=== PATIENT | female | born 1980 | race Caucasian/White ===

== ENCOUNTER 2016-09-12 20:28 | Emergency (ER) | payer OTHER ==
[~2016-09-12] VITALS: Ht 167.6 cm; Wt 98.4 kg
[~2016-09-12 20:28] MED LIST: DENIES
[2016-09-12 20:40] VITALS: Ht 167.6 cm; Wt 98.4 kg
[2016-09-12] MEDS ORDERED: IBUP-1542 PO (21:02)
[2016-09-12] MEDS ORDERED: HYDR-3011 PO (21:02)
[2016-09-12] MEDS ORDERED: SULF1TAB31 PO (21:02)
[2016-09-12] MEDS ORDERED: dm meds (21:15)
--- NOTE | 2016-09-12 21:17 | ERD ---
ER Documentation Chief Complaint Date/Time DATE: 09/12/16 TIME: 21:15 Chief Complaint bed bug bites HPI 35-year-old female presents to emergency department for complaints of multiple insect bites, bedbugs by, had an infestation where she lives, patient has been itching on affected areas, noted some areas to be painful and swollen, throbbing pain, 6/10 scale, is worse upon touching the area. Patient denies any fever or chills. Patient has history of diabetes. Patient did not take any medications to help with symptoms. Patient's family members are here with the same problem. ROS All systems reviewed and are negative except as per history of present illness. Medications Home Meds Active Scripts Ibuprofen* (Motrin*) 600 Mg Tab, 600 MG PO Q6H Y for PAIN AND OR ELEVATED TEMP, #30 TAB Prov:EMILIANA TRIVEDI NP 09/12/16 Hydroxyzine Hcl* (Hydroxyzine Hcl*) 25 Mg Tablet, 25 MG PO Q8H Y for ITCHING, # 30 TAB Prov:EMILIANA TRIVEDI NP 09/12/16 Sulfamethoxazole/Trimethoprim* (Bactrim Ds* Tablet) 1 Each Tablet, 1 TAB PO BID for 10 Days, #20 TAB Prov:EMILIANA TRIVEDI NP 09/12/16 Reported Medications [dm meds] Unknown Strength No Conflict Check 09/12/16 [Denies] No Conflict Check 08/23/09 Allergies Allergies: Coded Allergies: Penicillins (Verified Allergy, Intermediate, RASH, 08/23/09) PMhx/Soc History of Surgery: Yes (TUBAL LIGATION 01/15/09; CSECTION X 3) Anesthesia Reaction: No Hx Neurological Disorder: No Hx Respiratory Disorders: No Hx Cardiac Disorders: No Hx Psychiatric Problems: No Hx Miscellaneous Medical Probl: Yes (diabetes) Hx Alcohol Use: No Hx Substance Use: No Hx Tobacco Use: No FmHx Family History: No coronary disease, No diabetes, No other Physical Exam Vitals Vital Signs Date Time Temp Pulse Resp B/P Pulse Ox O2 Delivery O2 Flow Rate FiO2 09/12/16 20:40 98.4 96 20 123/79 98 Physical Exam GENERAL: The patient is well developed and appropriate for usual state of health, in no apparent distress. CHEST: Clear to auscultation bilaterally. There are no rales, wheezes or rhonchi. HEART: Regular rate and rhythm. No murmurs, clicks, rubs or gallops. No S3 or S4. ABDOMEN: Soft, nontender and nondistended. Good bowel sounds. No rebound or guarding. No gross peritonitis. No gross organomegaly or masses. No Carpio sign or McBurney point tenderness. BACK: No midline or flank tenderness. EXTREMITIES: Equal pulses bilaterally. There is no peripheral clubbing, cyanosis or edema. No focal swelling or erythema. Full range of motion. Grossly neurovascularly intact. NEURO: Alert and oriented. Cranial nerves 2-12 intact. Motor strength in all 4 extremities with 5/5 strength. Sensation grossly intact. Normal speech and gait. SKIN: Maculopapular rash noted all over the body, some rashes in the upper extremities to be erythematous and indurated with mild tenderness on palpation, no fluctuance noted. There is no apparent ecchymosis or petechia. The skin is warm and dry. HEMATOLOGIC AND LYMPHATIC: There is no evidence of excessive bruising or lymphedema. No gross cervical, axillary, or inguinal lymphadenopathy. Procedures/MDM Medical decision making: Patient symptoms are likely consistent with infected insect bites. No symptoms of any abscess at this time. No symptoms of any cellulitis at this time. No symptoms of any coagulopathies at this time. Patient was given for Bactrim, hydroxyzine, is advised to avoid scratching the area, ibuprofen was given for pain. Patient was advised to follow with primary care doctor in 2 days for reevaluation of symptoms. Patient is advised to return to emergency department for any worsening symptoms Departure Diagnosis: Primary Impression: Infected insect bites of multiple sites Condition: Stable Patient Instructions: Insect Sting/Bite, Infected, Bedbug Bites EMILIANA TRIVEDI NP Sep 12, 2016 21:17
== END 2016-09-12 21:04 | disposition home or self-care (01) ==
LOC: E/R 20:28
DX: S60.561A Insect bite (nonvenomous) of right hand, initial encounter (principal); S60.562A Insect bite (nonvenomous) of left hand, initial encounter; E11.9 Type 2 diabetes mellitus without complications; W57.XXXA Bitten or stung by nonvenomous insect and other nonvenomous arthropods, initial encounter; Y92.9 Unspecified place or not applicable
CPT/HCPCS: 99284

== ENCOUNTER 2016-11-04 10:22 | Emergency (ER) | payer OTHER ==
[~2016-11-04] VITALS: Ht 165.1 cm; Wt 92.0 kg
[~2016-11-04 10:22] MED LIST changes: +HYDR-3011 PO; +IBUP-1542 PO; +SULF1TAB31 PO; +dm meds
[2016-11-04 10:28] VITALS: Ht 165.1 cm; Wt 92.0 kg
[2016-11-04] MEDS ORDERED: BEN25 PO (10:53)
[2016-11-04] MEDS ORDERED: HC30CR25 TOP (10:54)
--- NOTE | 2016-11-04 11:27 | ERD ---
ER Documentation Chief Complaint Date/Time DATE: 11/04/16 TIME: 11:25 Chief Complaint Per Mother she has bug bite HPI This is a 36-year-old female presents to the ER with multiple bug bites all over her body. Patient presents to the ER with all of her children They all have bedbug bites and bedbugs are found in their apartment. Patient has not had any fevers or chills. She is asymptomatic otherwise. ROS All systems reviewed and are negative except as per history of present illness. Medications Home Meds Active Scripts Hydrocortisone* Topical (Hydrocortisone* Topical) 2.5%-28.3 Gm Cream..g., 1 APPLIC TOP BID, #1 TUB Prov:ELENOKEMARNEISHA C 11/04/16 Hydrocortisone* Topical (Hydrocortisone* Topical) 2.5%-28.3 Gm Cream..g., 1 APPLIC TOP BID, #1 TUB Prov:NEISHA JOHANSEN 11/04/16 Diphenhydramine Hcl* (Benadryl*) 25 Mg Cap, 25 MG PO Q6, #30 CAP Prov:NEISHA JOHANSEN 11/04/16 Ibuprofen* (Motrin*) 600 Mg Tab, 600 MG PO Q6H Y for PAIN AND OR ELEVATED TEMP, #30 TAB Prov:EMILIANA TRIVEDI NP 09/12/16 Hydroxyzine Hcl* (Hydroxyzine Hcl*) 25 Mg Tablet, 25 MG PO Q8H Y for ITCHING, # 30 TAB Prov:EMILIANA TRIVEDI NP 09/12/16 Sulfamethoxazole/Trimethoprim* (Bactrim Ds* Tablet) 1 Each Tablet, 1 TAB PO BID for 10 Days, #20 TAB Prov:EMILIANA TRIVEDI NP 09/12/16 Reported Medications [dm meds] Unknown Strength No Conflict Check 09/12/16 [Denies] No Conflict Check 08/23/09 Allergies Allergies: Coded Allergies: Penicillins (Verified Allergy, Intermediate, RASH, 11/04/16) PMhx/Soc Medical and Surgical Hx: Unable to obtain History of Surgery: Yes (TUBAL LIGATION 01/15/09; CSECTION X 3) Anesthesia Reaction: No Hx Neurological Disorder: No Hx Respiratory Disorders: No Hx Cardiac Disorders: No Hx Psychiatric Problems: No Hx Miscellaneous Medical Probl: Yes (diabetes) Hx Alcohol Use: No Hx Substance Use: No Hx Tobacco Use: No Smoking Status: Never smoker Physical Exam Vitals Vital Signs Date Time Temp Pulse Resp B/P Pulse Ox O2 Delivery O2 Flow Rate FiO2 11/04/16 10:28 98.0 82 20 113/67 98 Physical Exam GENERAL: The patient is well developed and appropriate for usual state of health , in no apparent distress. HEENT: Atraumatic. No facial swelling, lip swelling, tongue swelling, eye swelling. CHEST: Clear to auscultation bilaterally. There are no rales, wheezes or rhonchi. HEART: Regular rate and rhythm. No murmurs, clicks, rubs or gallops. NEURO: Alert and oriented. SKIN: bug Bites in linear fashion.. Procedures/MDM Differential Diagnosis: dermatitis, allergic urticaria, viral exanthem, insect bite, fungal infection ,viral exanthem, hand foot mouth disease, , impetigo, cellulitis, abscess, marshall jazmyn syndrome, meningocemia, necrotizing fasciitis. This is a 36-year-old female presents to the ER with multiple bug bites all over his body. At this time there is no evidence of infection or allergic reaction. She will be sent home with Benadryl and hydrocortisone. Patient needs to follow-up with his primary care doctor within 1-2 days or return to ER sooner if symptoms worsen. My medical decision making shared with the mother she understands and agrees with plan. Departure Diagnosis: Primary Impression: Bug bite Condition: Stable Patient Instructions: Bedbug Bites Additional Instructions: Call your primary care doctor TOMORROW for an appointment during the next 1-2 days.See the doctor sooner or return here if your condition worsens before your appointment time. NEISHA JOHANSEN Nov 04, 2016 11:26
== END 2016-11-04 11:11 | disposition home or self-care (01) ==
LOC: FTE 10:22
DX: S40.861A Insect bite (nonvenomous) of right upper arm, initial encounter (principal); E11.9 Type 2 diabetes mellitus without complications; W57.XXXA Bitten or stung by nonvenomous insect and other nonvenomous arthropods, initial encounter; Y92.9 Unspecified place or not applicable
CPT/HCPCS: 99283

== ENCOUNTER 2018-08-21 12:46 | Emergency (ER) | payer OTHER ==
[~2018-08-21] VITALS: Wt 112.0 kg
[~2018-08-21 12:46] MED LIST changes: +BEN25 PO; +HC30CR25 TOP; -HYDR-3011 PO; +HYDR-843 PO
--- NOTE | 2018-08-21 14:24 | ERD ---
ER Documentation Chief Complaint Chief Complaint LEFT GROIN ABCESS, X 2 WEEKS HPI 37-year-old female, with history of diabetes, presents to the emergency department, referred by her primary doctor, for evaluation of a painful lump on the left groin area; according to the referral papers, the patient has received already 2 courses of antibiotics with cephalexin without improvement of the symptoms. The patient reports subjective fever and general malaise. The pain is throbbing, constant, 7/10. Also the patient had an attempted I&D done at another facility without evidence of pus collection. ROS All systems reviewed and are negative except as per history of present illness. Medications Home Meds Active Scripts Hydrocodone/Acetaminophen ([place] 5-325 Tablet) 1 Each Tablet, 1 TAB PO TID PRN for PAIN, #10 TAB Prov:JUANITA MARINELLI MD 08/21/18 Doxycycline Hyclate* (Doxycycline Hyclate*) 100 Mg Tablet.dr, 100 MG PO BID for 7 Days, TAB Prov:JUANITA MARINELLI MD 08/21/18 Hydrocortisone* Topical (Hydrocortisone* Topical) 2.5%-28.3 Gm Cream..g., 1 APPLIC TOP BID, #1 TUB Prov:NEISHA JOHANSEN 11/04/16 Hydrocortisone* Topical (Hydrocortisone* Topical) 2.5%-28.3 Gm Cream..g., 1 APPLIC TOP BID, #1 TUB Prov:NEISHA JOHANSEN 11/04/16 Diphenhydramine Hcl* (Benadryl*) 25 Mg Cap, 25 MG PO Q6, #30 CAP Prov:NEISHA JOHANSEN 11/04/16 Ibuprofen* (Motrin*) 600 Mg Tab, 600 MG PO Q6H PRN for PAIN AND OR ELEVATED TEMP, #30 TAB Prov:EMILIANA TRIVEDI NP 09/12/16 Hydroxyzine Hcl* (Hydroxyzine Hcl*) 25 Mg Tablet, 25 MG PO Q8H PRN for ITCHING, #30 TAB Prov:EMILIANA TRIVEDI NP 09/12/16 Sulfamethoxazole/Trimethoprim* (Bactrim Ds* Tablet) 1 Each Tablet, 1 TAB PO BID for 10 Days, #20 TAB Prov:EMILIANA TRIVEDI NP 09/12/16 Reported Medications [dm meds] Unknown Strength No Conflict Check 09/12/16 [Denies] No Conflict Check 08/23/09 Allergies Allergies: Coded Allergies: Penicillins (Verified Allergy, Intermediate, RASH, 11/04/16) PMhx/Soc History of Surgery: Yes (TUBAL LIGATION 01/15/09; CSECTION X 3) Anesthesia Reaction: No Hx Neurological Disorder: No Hx Respiratory Disorders: No Hx Cardiac Disorders: No Hx Psychiatric Problems: No Hx Miscellaneous Medical Probl: Yes (diabetes) Hx Alcohol Use: No Hx Substance Use: No Hx Tobacco Use: No FmHx Family History: diabetes; No coronary disease Physical Exam Vitals Vital Signs Date Temp Pulse Resp B/P (MAP) Pulse Ox O2 O2 Flow FiO2 Time Delivery Rate 08/21/18 98.3 97 18 103/65 99 12:50 (78) Physical Exam Const: No acute distress Head: Atraumatic Eyes: Normal Conjunctiva ENT: Normal External Ears, Nose and Mouth. Neck: Full range of motion. No meningismus. Resp: Clear to auscultation bilaterally Cardio: Regular rate and rhythm, no murmurs Abd: Soft, non tender, non distended. Normal bowel sounds. Left groin area with 4 x 4 centimeters area of erythema, induration, tenderness and possible fluctuance. Skin: No petechiae or rashes Back: No midline or flank tenderness Ext: No cyanosis, or edema Neur: Awake and alert Psych: Normal Mood and Affect Result Diagram: 08/21/18 1450 08/21/18 1450 Results 24 hrs Laboratory Tests Test 08/21/18 14:50 White Blood Count 9.4 10^3/ul Red Blood Count 4.42 10^6/ul Hemoglobin 12.2 g/dl Hematocrit 36.2 % Mean Corpuscular Volume 81.9 fl Mean Corpuscular Hemoglobin 27.6 pg Mean Corpuscular Hemoglobin Concent 33.7 g/dl Red Cell Distribution Width 12.1 % Platelet Count 340 10^3/UL Mean Platelet Volume 10.1 fl Immature Granulocytes % 0.300 % Neutrophils % 73.6 % Lymphocytes % 17.8 % Monocytes % 7.5 % Eosinophils % 0.4 % Basophils % 0.4 % Nucleated Red Blood Cells % 0.0 /100WBC Immature Granulocytes # 0.030 10^3/ul Neutrophils # 6.9 10^3/ul Lymphocytes # 1.7 10^3/ul Monocytes # 0.7 10^3/ul Eosinophils # 0.0 10^3/ul Basophils # 0.0 10^3/ul Nucleated Red Blood Cells # 0.0 10^3/ul Sodium Level 136 mmol/L Potassium Level 4.1 mmol/L Chloride Level 102 mmol/L Carbon Dioxide Level 24 mmol/L Anion Gap 10 Blood Urea Nitrogen 14 mg/dl Creatinine 0.71 mg/dl Est Glomerular Filtrat Rate mL/min > 60 mL/min Glucose Level 327 mg/dl Calcium Level 9.0 mg/dl Serum HCG, Qualitative NEGATIVE Current Medications Medications Dose Sig/Natasha Start Time Status Last (Trade) Ordered Route PRN Stop Time Admin Dose Reason Admin Lidocaine 4 applic ONCE STAT 08/21/18 DC (Lmx 4% Plus) TOP 15:30 08/21/18 15:33 Lidocaine 10 ml ONCE STAT 08/21/18 DC HCl INJ 15:30 (Lidocaine 08/21/18 15:33 1% (Mdv) 10 ml) Bupivacaine 30 ml ONCE ONCE 08/21/18 DC HCl INJ 15:30 (Marcaine 08/21/18 15:33 0.25% (Mpf) 30 ml) Patient: LAURENCE DORANTES : 1980 Age: 37 Sex: F MR #: [id number] DOS: 08/21/18 1422 Ordering MD: JUANITA MARINELLI MD Location: [facility] Room/Bed: PROCEDURE: US Left Lower Extremity Non-Vascular, Limited CLINICAL INDICATION: Left groin mass. TECHNIQUE: Real-time ultrasound scan of the left lower extremity with image do cumentation. COMPARISON: None FINDINGS: SOFT TISSUES: Hypoechoic the irregularly shaped structure in the left groin measuring 4.5 x 1.7 cm, of nonspecific etiology. This may represent edema versus a more defined collection such as hematoma or abscess. No foreign body. Well defined hypoechoic mass measuring 1.4 x 0.9 x 1.3 cm also demonstrated in the left groin area. This is also nonspecific and may represent an enlarged lymph node versus hematoma versus other solid mesenchymal mass. OTHER FINDINGS: No hyperemia associated with masses/collections. IMPRESSION: 1. Hypoechoic the irregularly shaped structure in the left groin measuring 4.5 x 1.7 cm, of nonspecific etiology. This may represent edema versus a more defined collection such as hematoma or abscess. 2. Well defined hypoechoic mass measuring 1.4 x 0.9 x 1.3 cm also demonstrated in the left groin area. This is also nonspecific and may represent an enlarged lymph node versus hematoma versus other solid mesenchymal mass. Procedures/MDM Vital signs stable. Differential diagnosis considered include but not limited to: Cellulitis, abscess, lipoma, neoplasm. Low suspicion for acute systemic infection. Physical examination and clinical presentation consistent most likely with skin abscess. During the ED course the patient remained stable, no new complaints. The patient received treatment with incision and drainage of the area presenting overall improvement of the symptoms. Incision and drainage: Informed consent obtained, risk and benefits discussed with patient. Indication: Left groin skin abscess Area cleaned and sterilized with chlorhexidine solution, 2 mL of lidocaine w ithout epi was infiltrated in the area of the incision. 5 mm incision was made with 11 blade scalpel abscess was drained with breaking up loculation with a hemostat. 1/4 packing was placed through the incision in the abscess cavity. The patient tolerated well the procedure without complications. Results and clinical impression discussed with the patient who agrees with management. The patient is stable to be treated outpatient and will be discharged home, some side effects of prescribed medications (headache, rash, nausea, vomiting, diarrhea, drowsiness, habituation, bleeding, hypertension, interactions with other medications) were reviewed. The patient was instructed to follow up with the primary care provider in the next 48h. If symptoms persist, worsen or new symptoms develop, then patient should return to the ED immediately. Instructions explained and given directly by me to the patient with acknowledgment and demonstrated understanding. Disclaimer: Inadvertent spelling and grammatical errors are likely due to EHR/dictation software use and do not reflect on the overall quality of patient care. Also, please note that the electronic time recorded on this note does not necessarily reflect the actual time of the patient encounter. Departure Diagnosis: Primary Impression: Skin abscess Condition: Stable Additional Instructions: Thank you very much for allowing us to participate in your care. Your health and safety is our top priority at [facility]. Call your primary care doctor TOMORROW for an appointment during the next 2-4 days and bring all the information provided. Have prescriptions filled and follow precisely the directions on the label. If the symptoms get worse and your provider is unavailable, return to the Emergency Department immediately. JUANITA MARINELLI MD August 21, 2018 14:24
[2018-08-21] MEDS ORDERED: LIDOCAINE 4% CR TOP STA (15:30)
[2018-08-21] MEDS ORDERED: BUPIVACAINE 0.25% (MPF) 30 ML INJ INJ ONE (15:30)
[2018-08-21] MEDS ORDERED: LIDOCAINE 1% (MDV) 10 ML INJ INJ STA (15:30)
[2018-08-21] MEDS ORDERED: DOXY100T20 PO (15:50)
[2018-08-21] MEDS ORDERED: HYDR-4011 PO (15:50)
== END 2018-08-21 16:39 | disposition home or self-care (01) ==
LOC: FTE 12:46
DX: L02.214 Cutaneous abscess of groin (principal); E11.9 Type 2 diabetes mellitus without complications
CPT/HCPCS: 76536; 80048; 84703; 85025; Z7502; Z7610

== ENCOUNTER 2018-08-23 10:43 | Emergency (ER) | payer OTHER ==
[~2018-08-23] VITALS: Ht 170.2 cm; Wt 109.1 kg
[~2018-08-23 10:43] MED LIST changes: +DOXY100T20 PO; +HYDR-4011 PO
[2018-08-23 10:53] VITALS: BP 121/90; PULSE 82; RESP 18; Ht 170.2 cm; Wt 109.1 kg
--- NOTE | 2018-08-23 16:40 | ERD ---
ER Documentation Chief Complaint Chief Complaint WOUND RECHECK HPI This is a 37-year-old female patient who presents to the emergency room for recheck of abscess that was drained yesterday to left mounds pubis. She returns today although she was instructed to return tomorrow as she is having increased drainage and gauze packing has been removed. Denies fevers, states that she is taking the antibiotics as prescribed. ROS All systems reviewed and are negative except as per history of present illness. Medications Home Meds Active Scripts Hydrocodone/Acetaminophen ([place] 5-325 Tablet) 1 Each Tablet, 1 TAB PO TID PRN for PAIN, #10 TAB Prov:JUANITA MARINELLI MD 08/21/18 Doxycycline Hyclate* (Doxycycline Hyclate*) 100 Mg Tablet.dr, 100 MG PO BID for 7 Days, TAB Prov:JUANITA MARINELLI MD 08/21/18 Hydrocortisone* Topical (Hydrocortisone* Topical) 2.5%-28.3 Gm Cream..g., 1 APPLIC TOP BID, #1 TUB Prov:NEISHA JOHANSEN 11/04/16 Hydrocortisone* Topical (Hydrocortisone* Topical) 2.5%-28.3 Gm Cream..g., 1 APPLIC TOP BID, #1 TUB Prov:NEISHA JOHANSEN 11/04/16 Diphenhydramine Hcl* (Benadryl*) 25 Mg Cap, 25 MG PO Q6, #30 CAP Prov:NEISHA JOHANSEN 11/04/16 Ibuprofen* (Motrin*) 600 Mg Tab, 600 MG PO Q6H PRN for PAIN AND OR ELEVATED TEMP, #30 TAB Prov:EMILIANA TRIVEDI NP 09/12/16 Hydroxyzine Hcl* (Hydroxyzine Hcl*) 25 Mg Tablet, 25 MG PO Q8H PRN for ITCHING, #30 TAB Prov:EMILIANA TRIVEDI NP 09/12/16 Sulfamethoxazole/Trimethoprim* (Bactrim Ds* Tablet) 1 Each Tablet, 1 TAB PO BID for 10 Days, #20 TAB Prov:EMILIANA TRIVEDI NP 09/12/16 Reported Medications [dm meds] Unknown Strength No Conflict Check 09/12/16 [Denies] No Conflict Check 08/23/09 Allergies Allergies: Coded Allergies: Penicillins (Verified Allergy, Intermediate, RASH, 11/04/16) PMhx/Soc History of Surgery: Yes (TUBAL LIGATION 01/15/09; CSECTION X 3) Anesthesia Reaction: No Hx Neurological Disorder: No Hx Respiratory Disorders: No Hx Cardiac Disorders: No Hx Psychiatric Problems: No Hx Miscellaneous Medical Probl: No Hx Alcohol Use: No Hx Substance Use: No Hx Tobacco Use: No FmHx Family History: No diabetes, No coronary disease, No other Physical Exam Vitals Vital Signs Date Temp Pulse Resp B/P (MAP) Pulse Ox O2 O2 Flow FiO2 Time Delivery Rate 08/23/18 97.6 82 18 121/90 96 10:53 (100) Physical Exam Const: No acute distress Head: Atraumatic Eyes: Normal Conjunctiva ENT: Normal External Ears, Nose and Mouth. Neck: Full range of motion. No meningismus. Resp: Clear to auscultation bilaterally Cardio: Regular rate and rhythm, no murmurs Abd: Soft, non tender, non distended. Normal bowel sounds Skin: Left mounds pubis: no cellulitis, +induration, +purulent drainage, no foul odor, no bleeding Neur: Awake and alert Psych: Normal Mood and Affect Procedures/MDM This is a 37-year-old female patient who presents to the emergency room for recheck of abscess that was drained yesterday to left mounds pubis. Procedure: wound evaluated, scant drainage expressed with palpation, wound shallow with moderate drainage. 1/4" iodoform gauze packing placed to allow for continue drainage and prevent early closure of wound to prevent recurring abscess. This patients soft tissue infection appears to be appropriate for outpatient tr eatment with close follow-up for reevaluation by a clinician within 24-48 hours. A serious, rapidly progressive infectious process is unlikely based upon the patients presentation and appearance of the infection. Antibiotic treatment has been initiated here and response to treatment will be based on reassessment at close follow-up. The patient has been instructed on signs and symptoms of acute progression of infection and to return immediately if any of these occur. Departure Diagnosis: Primary Impression: Skin abscess Site of cutaneous abscess: trunk Site of cutaneous abscess of trunk: groin Qualified Codes: L02.214 - Cutaneous abscess of groin Condition: Stable Patient Instructions: Abscess (, Incision And Drainage) Additional Instructions: Thank you very much for allowing us to participate in your care. Your health and safety is our top priority at [facility]. Call your primary care doctor TOMORROW for an appointment during the next 2-4 days and bring all the information and medications prescribed. Have prescriptions filled and follow precisely the directions on the label. If the symptoms get worse and your provider is unavailable, return to the Emergency Department immediately. Continue with your prescribed antibiotics. Use ibuprofen for discomfort. Use warm compress 2-3 times per day. Follow-up with your primary care doctor in 2 to 3 days. KHADRA ALEGRIA NP August 23, 2018 16:40
== END 2018-08-23 13:25 | disposition home or self-care (01) ==
LOC: FTE 10:43
DX: L02.214 Cutaneous abscess of groin (principal)
CPT/HCPCS: 99281

== ENCOUNTER 2018-08-24 10:51 | Emergency (ER) | payer SELFPAY ==
[~2018-08-24] VITALS: Ht 170.2 cm; Wt 75.0 kg
[2018-08-24 10:55] VITALS: BP 119/73; PULSE 72; RESP 18; Ht 170.2 cm; Wt 75.0 kg
== END 2018-08-24 15:10 | disposition left against medical advice (07) ==
LOC: FTE 10:51
DX: Z53.21 Procedure and treatment not carried out due to patient leaving prior to being seen by health care provider (principal)